=== PATIENT | female | born 1955 | race Hispanic/Latino ===

== ENCOUNTER 2021-06-02 02:37 | Emergency (ER) | payer MEDICARE, OTHER ==
[2021-06-02] MEDS ORDERED: Ketorolac Tromethamine 30 MG/ML VIAL ONE (04:44)
[2021-06-02] MEDS ORDERED: Metoclopramide HCl 10 MG TAB ONE (04:44)
[2021-06-02] MEDS ORDERED: Sodium Chloride 0.9% 1,000 ML ONE (04:44)
[2021-06-02] MEDS ORDERED: diphenhydrAMINE 50 MG/ML VIAL ONE (04:44)
[2021-06-02] MEDS ORDERED: Metoclopramide HCl 10 MG/2 ML VIAL ONE (04:45)
[2021-06-02 07:50] LABS: Troponin I Less than 0.010 ng/mL (< 0.028)
[2021-06-02 07:51] LABS: ALT (SGPT) 9 U/L (8-55); AST (SGOT) 12 U/L (5-34); Albumin 3.8 g/dL (3.4-4.8); Alkaline Phosphatase 195 U/L (40-110); Anion Gap 14 mmol/L (10-20); BUN (Urea Nitrogen) 15 mg/dL (9.8-20.1); Bilirubin, Total 0.3 mg/dL (0.2-1.2); Calc. Creatinine Clearance 0 mL/min (70-130); Calcium 9.5 mg/dL (7.8-10.44); Carbon Dioxide 27 mmol/L (23-31); Chloride 105 mmol/L (98-107); Globulin 2.5 g/dL (2.4-3.5); Glucose 142 mg/dL (80-115); Potassium 3.9 mmol/L (3.5-5.1); Protein, Total 6.3 g/dL (5.8-8.1); Sodium 142 mmol/L (136-145)
[2021-06-02 07:52] LABS: #Basophils 0.1 thou/uL (0.0-0.2); #Eosinphils 0.3 thou/uL (0.0-0.7); #Lymphocytes 2.3 thou/uL (1.20-3.40); #Monocytes 0.6 thou/uL (0.11-0.59); #Neutrophils 4.5 thou/uL (1.40-6.50); %Basophils 0.8 % (0.0-1.0); %Eosinophils 3.3 % (0.0-10.0); %Lymphocytes 30.2 % (21.0-51.0); %Monocytes 7.6 % (0.0-10.0); %Neutrophils 58.1 % (42.0-75.0); Hemoglobin 11.4 g/dL (12.0-16.0); Mean Corpuscular HGB CONC 29.8 g/dL (32.0-36.0); Mean Corpuscular Hemoglobin 22.9 pg (27.0-31.0); Mean Corpuscular Volume 76.8 fL (78.0-98.0); Mean Platelet Volume 8.3 fL (7.4-10.4); Platelet Count 269 thou/uL (130-400); Red Blood Cell (RBC) Count 4.99 mill/uL (4.20-5.40); White Blood Cell (WBC) Count 7.7 thou/uL (4.8-10.8)
[2021-06-02 07:53] LABS: Anisocytosis SLIGHT = 6-15 cells (100X) (0-5/hpf); Hypochromia SLIGHT = 6-15 cells (100X) (0-5/hpf); Microcytosis SLIGHT = 6-15 cells (100X) (0-5/hpf)
[2021-06-02 08:00] LABS: CK (CPK) 45 U/L (29-168)
== END 2021-06-02 06:24 ==
LOC: MADERS 02:37
DX: R55 Syncope and collapse (principal); R51.9 Headache, unspecified; I10 Essential (primary) hypertension; E11.9 Type 2 diabetes mellitus without complications; Z79.899 Other long term (current) drug therapy
CPT/HCPCS: 71045; 80053; 82550; 84484; 85025; 96374; 96375; J1200; J1885; J2765; J7050

== ENCOUNTER 2021-08-24 15:42 | Emergency (ER) | payer MEDICARE, OTHER ==
[2021-08-24] MEDS ORDERED: Orphenadrine Citrate 60 MG/2 ML VIAL ONE (16:35)
[2021-08-24] MEDS ORDERED: Ondansetron ODT 4 MG TAB ONE (16:35)
== END 2021-08-24 17:04 | disposition home or self-care (01) ==
LOC: MADERS 15:42
DX: M54.2 Cervicalgia (principal); R51.9 Headache, unspecified; M54.9 Dorsalgia, unspecified; G89.29 Other chronic pain; I10 Essential (primary) hypertension; E11.9 Type 2 diabetes mellitus without complications; E78.00 Pure hypercholesterolemia, unspecified; Z76.0 Encounter for issue of repeat prescription; Z79.4 Long term (current) use of insulin
CPT/HCPCS: 96372; 99283; J2360; Q0162